=== PATIENT | female | born 1965 | race Caucasian/White ===

== ENCOUNTER → 2017-01-04 | Outpatient (CLI) | payer BC ==
--- NOTE | 2017-01-04 16:01 | DIAGNOSTIC IMAGING REPORT ---
RIGHT SHOULDER 3 VIEWS HISTORY: RIGHT SHOULDER PAIN Right COMPARISON: None. FINDINGS: There is no fracture or dislocation. Soft tissues are unremarkable. No radiopaque foreign bodies. The right clavicle is intact. Mild cartilage space narrowing within the glenohumeral joint consistent with degenerative change. IMPRESSION: No fractures. 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 Electronically signed by: Thad Centeno M.D. 01/04/2017 3:59 PM Dictated Date/Time: 01/04/2017 3:59 PM
== END | disposition home or self-care (01) ==
LOC: C.RDSM 15:10
PROVIDERS: ATTEND Family Medicine
DX: M25.511 Pain in right shoulder (principal)

== ENCOUNTER → 2017-01-17 | Outpatient (CLI) | payer BC ==
[~2017-01-17] MED LIST: GADAVIST IV PRN
--- NOTE | 2017-01-17 14:09 | DIAGNOSTIC IMAGING REPORT ---
R INJECTION SHOULDER PRE MRI FLUOROSCOPY TIME: 19 seconds. Single AP spot fluoroscopic image of the right shoulder was obtained CLINICAL HISTORY: 51 years-old Female with chronic right shoulder pain without reported trauma. Limited range of motion. PROCEDURE: After obtaining written informed consent, the patient was placed supine on the fluoroscopy table. A suitable site for needle insertion was marked using fluoroscopic guidance. The right shoulder was prepped and draped in the usual sterile fashion. 1% lidocaine was used for skin, subcutaneous and deep soft tissue anesthesia. Under intermittent fluoroscopic guidance, a 22 gauge 1.5 inch needle was inserted into the right glenohumeral joint. A total of 10 cc of one-to-one mixture of dilute Magnevist (0.1 cc in 10 cc saline) and Optiray 300 were injected. The needle was then removed. There were no apparent complications. The patient was transported to MR for further imaging. IMPRESSION: Fluoroscopic-guided right shoulder arthrogram without immediate complication. Total injected volume was 10 cc. MR portion of the examination will be dictated separately. The above report was generated using voice recognition software. It may contain grammatical, syntax or spelling errors. Electronically signed by: Michael Clarke M.D. 01/17/2017 2:07 PM Dictated Date/Time: 01/17/2017 2:06 PM
--- NOTE | 2017-01-17 14:42 | DIAGNOSTIC IMAGING REPORT ---
R UPPER EXTREMITY JOINT W/ CLINICAL HISTORY: RT SHOULDER PAIN pain TECHNIQUE: Multi axial MRI acquisition COMPARISON STUDY: None FINDINGS: Signal characteristics the osseous structures are unremarkable. Mild hypertrophic changes of the acromioclavicular joint. Mild degenerative fibrillation of the services of the labrum. There is moderate supraspinatus tendinopathy. There is no evidence for full-thickness rotator cuff tear. The biceps tendon is intact within the bicipital groove. There is a small amount of contrast extravasation anterior to the humeral head to be technical. IMPRESSION: 1. No evidence for rotator cuff tear. 2. Moderate supraspinatus tendinopathy. 3. Minimal/mild degenerative changes of the articular services the glenohumeral joint. The above report was generated using voice recognition software. It may contain grammatical, syntax or spelling errors. Electronically signed by: Juan Townsend M.D. 01/17/2017 2:41 PM Dictated Date/Time: 01/17/2017 2:39 PM
== END | disposition home or self-care (01) ==
LOC: C.MRIBC 13:21
PROVIDERS: ATTEND Family Medicine
DX: M25.611 Stiffness of right shoulder, not elsewhere classified (principal); M25.511 Pain in right shoulder